=== PATIENT | female | born 1995 | race Two or more races ===

== ENCOUNTER 2019-03-13 16:24 | Emergency (ER) | payer SELFPAY ==
[~2019-03-13] VITALS: Wt 43.3 kg
[~2019-03-13 16:24] MED LIST: BACL10TA PO; NAPR-985 PO
[2019-03-13 16:42] VITALS: BP 123/73; PULSE 76; RESP 20; Wt 43.3 kg
[2019-03-13] MEDS ORDERED: KETOROLAC 30 MG INJ IM STA (17:49)
[2019-03-13] MEDS ORDERED: DIAZEPAM 5 MG TAB PO ONE (18:00)
== END 2019-03-13 19:16 | disposition home or self-care (01) ==
LOC: FTE 16:24
DX: M62.838 Other muscle spasm (principal); M62.830 Muscle spasm of back
CPT/HCPCS: 72040; 81025; 96372; 99284; J1885